=== PATIENT | male | born 1980 | race Hispanic/Latino ===

== ENCOUNTER 2018-05-23 19:39 | Emergency (ER) | payer SELFPAY ==
[~2018-05-23 19:39] MED LIST: ISOVUE-370 76%-LOCM 1 ML ONE
[2018-05-23 20:18] LABS: #Lymphocytes 0.8 thou/uL (1.20-3.40); #Monocytes 0.7 thou/uL (0.11-0.59); #Neutrophils 10.1 thou/uL (1.40-6.50); %Basophils 0.1 % (0.0-1.0); %Eosinophils 0.1 % (0.0-10.0); %Lymphocytes 6.9 % (21.0-51.0); %Neutrophils 86.8 % (42.0-75.0); Hemoglobin 16.3 g/dL (14.0-18.0); Mean Corpuscular HGB CONC 34.3 g/dL (32.0-36.0); Mean Corpuscular Hemoglobin 31.3 pg (27.0-31.0); Mean Corpuscular Volume 91.1 fL (78.0-98.0); Mean Platelet Volume 6.5 fL (7.4-10.4); Platelet Count 236 thou/uL (130-400); RBC Distribution Width 11.8 % (11.5-14.5); Red Blood Cell (RBC) Count 5.21 mill/uL (4.70-6.10); White Blood Cell (WBC) Count 11.7 thou/uL (4.8-10.8)
[2018-05-23 20:41] LABS: ALT (SGPT) 46 U/L (8-55); AST (SGOT) 27 U/L (5-34); Albumin 4.7 g/dL (3.5-5.0); Alkaline Phosphatase 74 U/L (40-150); Anion Gap 15 mmol/L (10-20); BUN (Urea Nitrogen) 14 mg/dL (8.9-20.6); Bilirubin, Total 1.5 mg/dL (0.2-1.2); Calc. Creatinine Clearance 0 mL/min (70-130); Calcium 9.6 mg/dL (7.8-10.44); Carbon Dioxide 23 mmol/L (22-29); Chloride 101 mmol/L (98-107); Estimated GFR-MDRD 80; Globulin 3.2 g/dL (2.4-3.5); Glucose 114 mg/dL (70-105); Lipase 20 U/L (8-78); Potassium 3.9 mmol/L (3.5-5.1); Protein, Total 7.9 g/dL (6.0-8.3); Sodium 135 mmol/L (136-145)
[2018-05-23 21:49] LABS: Bilirubin Negative (Negative); Blood, Urine Negative (Negative); Clarity CLEAR (Clear); Glucose, Urine (Dipstick) Negative (Negative); Leukocyte Negative (Negative); Nitrite Negative (Negative); Protein, Urine (Dipstick) Negative (Neg-Trace); Specific Gravity, Urine 1.012 (1.002-1.036); Urobilinogen 0.2 mg/dL (0.2-1.0); pH, Urine 5.5 (5.0-9.0)
[2018-05-23] MEDS ORDERED: Morphine 4 MG/ML VIAL ONE (23:09)
[2018-05-23] MEDS ORDERED: Ondansetron PF 4 MG/2 ML Vial ONE (23:09)
--- NOTE | 2018-05-23 23:09 | CT ---
CT ABDOMEN AND PELVIS WITH CONTRAST 05/23/18 HISTORY: Abdominal pain. FINDINGS: The lung bases are clear. No pericardial effusion. Diffuse hepatic steatosis. The appendix is visualized and is normal. No free fluid within the abdomen or pelvis. The spleen an d pancreas are unremarkable as well as the gallbladder. Adrenal glands are unremarkable. No hydronephrosis. No retroperitoneal adenopathy. No osseous abnormality. There is unformed stool throughout the colon which is a secondary sign of teagan rrhea. IMPRESSION: 1. Unformed stool throughout the colon which is a secondary sign of diarrhea. 2. Diffuse hepatic steatosis. 3. No other abnormality within the abdomen or pelvis. Normal appendix. POS: [facility]
[2018-05-24] MEDS ORDERED: Sucralfate 1 GM/10 ML UDCUP ONE (00:28)
== END 2018-05-24 00:53 | disposition home or self-care (01) ==
LOC: ERS 19:39 → EDBD 19:39 → ERS 05-24 00:53
DX: R10.9 Unspecified abdominal pain (principal); R11.2 Nausea with vomiting, unspecified; R19.7 Diarrhea, unspecified
CPT/HCPCS: 36415; 74177; 80053; 81003; 83690; 85025; 96361; 96374; 96375; J2270; J2405; Q9966